=== PATIENT | female | born 1980 | race Caucasian/White ===

== ENCOUNTER 2017-08-26 02:18 | Emergency (ER) | payer SELFPAY ==
[2017-08-26 02:48] LABS: URINE HCG POC HCG NEGATIVE (Negative)
== END 2017-08-26 06:44 | disposition home or self-care (01) ==
LOC: ER 02:18
DX: S02.2XXA Fracture of nasal bones, initial encounter for closed fracture (principal); S00.83XA Contusion of other part of head, initial encounter; F14.10 Cocaine abuse, uncomplicated; E66.9 Obesity, unspecified; Z88.0 Allergy status to penicillin; Z68.41 Body mass index [BMI] 40.0-44.9, adult; Y04.0XXA Assault by unarmed brawl or fight, initial encounter; Y93.89 Activity, other specified; Y92.89 Other specified places as the place of occurrence of the external cause; Y99.8 Other external cause status
CPT/HCPCS: 70450; 70486; 72125; 81025; 99284-25